=== PATIENT | male | born 1950 | race Native Hawaiian/Other Pacific Islander ===

== ENCOUNTER 2018-01-21 03:31 | Emergency (ER) | payer MEDICAID ==
[2018-01-21 04:08] VITALS: BMI 18.3
--- NOTE | 2018-01-21 04:10 | ED PDOC ---
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 As per son, patient initially refused to come to the emergency department. Son states patient does not want any aggressive care, noting that he is terminal. Son states patient has received prior treatment including multiple doses of chemotherapy with no relief. Upon arrival son states states patient initially refusing all blood work or placement of any IV lines. Son states he only wants comfort care for patient. Patient does not have any DNR in effect currently. Time/Duration: Prior to Arrival Past Medical History - Provider Review Nursing Documentation Reviewed: Yes Family/Social History - Physician Review Nursing Documentation Reviewed: Yes Family/Social History: No Known Family HX Allergies/Home Meds Allergies/Adverse Reactions: Allergies Unobtainable Allergy (Verified 01/21/18 04:06) Review of Systems - Physician Review All systems were reviewed & negative as marked: Yes - Review of Systems Constitutional: Fatigue Gastrointestinal: Vomiting, Appetite Changes (decreased oral intake) Physical Exam Vital Signs Reviewed: Yes Vital Signs Temp Pulse Resp BP 01/21/18 03:50 96.7 F L 83 30 H 69/50 L Temperature: Hypothermic Blood Pressure: Hypotensive Pulse: Regular Respiratory Rate: Tachypneic Appearance: Positive for: Ill-Appearing, Uncomfortable, Cachectic Mental Status: Positive for: Alert and Oriented X 3, Lethargic - Systems Exam Head: Present: Other (temporal wasting) Pupils: Present: PERRL Extroacular Muscles: Present: EOMI Mouth: Present: Dry. No: Moist Mucous Membranes Neck: Present: Other (supple) Respiratory/Chest: Present: Clear to Auscultation, Good Air Exchange. No: Respiratory Distress, Accessory Muscle Use Cardiovascular: Present: Regular Rate and Rhythm, Normal S1, S2. No: Murmurs Abdomen: No: Tenderness, Distention Back: Present: Normal Inspection Upper Extremity: Present: Normal Inspection. No: Cyanosis, Edema Lower Extremity: Present: Normal Inspection. No: Edema Neurological: Present: Motor Func Grossly Intact Psychiatric: Present: Oriented x 3, Normal Insight, Lethargic. No: Alert (drowsy) Medical Decision Making ED Course and Treatment: 01/21/18 04:18 Impression: 67 year old male presents with lethargy, decreased oral intake, and vomiting. Plan: -- IV Fluids -- Reassess and disposition Prior Visits: Notes and results from previous visits were reviewed. Progress Notes: 01/21/18 04:45 Discussed case with patient's PMD, Dr. Bundy. Dr. Bundy spoke with the patient's son. DNR/DNI order was given by Dr. Bundy after talking with the son. As stated previously, son and patient refuse any aggressive care in emergency department including labs, x-rays, or any resuscitation if needed. Both fully understand the risk of undiagnosed abnormalities and subsequent proper care. Nevertheless wishes are granted at this time. 01/21/18 06:48 Patient and family present wish to now leave the hospital.They understand risk in leaving including worsening of his condition/recurrent hypotension/possible underlying undiagnosed abnormalities/.Patient to sign out AGAINST MEDICAL ADVICE. - Scribe Statement The provider has reviewed the documentation as recorded by the Ernst Quiros Provider Scribe Attestation: All medical record entries made by the Scribe were at my direction and personally dictated by me. I have reviewed the chart and agree that the record accurately reflects my personal performance of the history, physical exam, medical decision making, and the department course for this patient. I have also personally directed, reviewed, and agree with the discharge instructions and disposition. Disposition/Present on Arrival - Present on Arrival Any Indicators Present on Arrival: No - Disposition Have Diagnosis and Disposition been Completed?: Yes Diagnosis: Gastric cancer, Dehydration, Hypotension Disposition: AGAINST MEDICAL ADVICE Disposition Time: 06:48 Condition: GUARDED
[2018-01-21] MEDS ORDERED: Sodium Chloride 0.9% 1,000 ML IV STA ×2 (04:16→04:40)
[2018-01-21 05:54] VITALS: RESP 18
[2018-01-21 06:51] VITALS: BP 111/66; PULSE 95; TEMP 98; O2SAT 100
== END 2018-01-21 06:50 | disposition left against medical advice (07) ==
LOC: ED 03:31
DX: C16.9 Malignant neoplasm of stomach, unspecified (principal); E86.0 Dehydration; I95.9 Hypotension, unspecified
CPT/HCPCS: 82948; 99284; J7030